=== PATIENT | female | born 2000 | race Two or more races ===

== ENCOUNTER 2025-01-17 18:33 | Emergency (ER) | payer OTHER ==
[~2025-01-17] VITALS: Ht 172.7 cm; Wt 71.8 kg
[2025-01-17] MEDS ORDERED: IBUP-1456 PO (20:20)
--- NOTE | 2025-01-17 20:20 | ED.PDOC ---
Musculoskeletal HPI Comments 24-year-old female presents to ER with complaints of left ankle pain x two days. Patient reports that she has been experiencing pain/swelling/bruising and numbness/tingling to left ankle and left foot x2 days s/p "rolling" her left ankle inwards while playing basketball two days ago. Denies head injury/LOC. States that she followed up with an urgent care provider yesterday with regards to her symptoms and was told that her left ankle "looked sprain" and was told to come back on Saturday for an x-ray of her left ankle. She rates her current pain a 8/10 to left ankle and left foot. Patient presents to ER with use of crutches and states she has not been able to bear weight on left leg due to left ankle and left foot pain. Denies any further symptoms/complaints Chief Complaint: Lower Extremity Time Seen by MD: 18:35 Primary Care Provider: UNKNOWN Reviewed Notes: Nurses Notes, Medications, Allergies Allergies: Coded Allergies: NO KNOWN ALLERGIES (Unverified , 01/17/25) Home Meds Active Scripts Ibuprofen (Ibuprofen) 800 Mg Tab, 1 TAB PO TID PRN, #30 TAB 0 Refills Prov:ENRIQUE SCHAEFER 01/17/25 Information Source: Patient Mode of Arrival: Wheelchair Past Medical History PAST MEDICAL HISTORY: Denies Surgical History: Denies all surgeries [facility] 01-14-25 Family History Family History: Unknown Social History Smoker: Non-Smoker Alcohol: Denies ETOH Use Drugs: Denies Drug Use Lives In: Home Constitutional: denies: chills, diaphoresis, fatigue, fever, malaise, sweats, weakness, others EENTM: denies: blurred vision, double vision, ear bleeding, ear discharge, ear drainage, ear pain, ear ringing, eye pain, eye redness, hearing loss, mouth pain, mouth swelling, nasal discharge, nose bleeding, nose congestion, nose pain, photophobia, tearing, throat pain, throat swelling, voice changes, others Respiratory: denies: cough, hemoptysis, orthopnea, SOB at rest, shortness of breath, SOB with excertion, stridor, wheezing, others Cardiovascular: denies: chest pain, dizzy spells, diaphoresis, Dyspnea on e xertion, edema, irregular heart beat, left arm pain, lightheadedness, palpitations, PND, syncope, others Gastrointestinal: denies: abdomen distended, abdominal pain, blood streaked bowels, constipated, diarrhea, dysphagia, difficulty swallowing, hematemesis, melena, nausea, poor appetite, poor fluid intake, rectal bleeding, rectal pain, vomiting, others Genitourinary: denies: abnormal vagina bleeding, burning, dyspareunia, dysuria, flank pain, frequency, hematuria, incontinence, pain, , vagina discharge, urgency, others Neurological: denies: dizziness, fainting, headache, left sided numbness, left sided weakness, numbness, paresthesia, pre-existing deficit, right sided numbness, right sided weakness, seizure, speech problems, tingling, tremors, weakness, others Musculoskeletal: reports: others ( STATED IN HPI) Integumetry: reports: others ( STATED IN HPI) Allergic/Immunocompromised: denies: Difficulty Healing, Frequent Infections, Hives, Itching, others Hematologic/Lymphatic: denies: anemia, blood clots, easy bleeding, easy bruising, swollen glands, others Endocrine: denies: excessive hunger, excessive sweating, excessive thirst, excessive urination, flushing, intolerance to cold, intolerance to heat, unexplained weight gain, unexplained weight loss, others Psychiatric: denies: anxiety, bipolar disorder, depression, hopeless, panic disorder, schizophrenia, sleepless, suicidal, others Physical Exam General Appearance: No Apparent Distress HEENT: PERRL/EOMI Neck: Full Range of Motion, Non-Tender, Normal Respiratory: Chest Non-Tender, Lungs Clear, No Accessory Muscle Use, No Respiratory Distress, Normal Breath Sounds Cardiovascular: No Murmur, No Gallop, Regular Rate/Rhythm Breast Exam: Deferred Gastrointestinal: NOT DONE Genitalia: Deferred Pelvic: Deferred Rectal: Deferred Extremities: No calf tenderness, Normal capillary refill, Normal range of motion Musculoskeletal : Extremity Location: Ankle (TTP/MILD SWELLING/ECCHYMOSIS NOTED TO LEFT LATERAL MEDIAL MALLEOLUS AND DIFFUSE TO DORSAL SURFACE OF LEFT FOOT. NO FURTHER SKIN CHANGES NOTED. PULSES INTACT. PATIENT UNABLE TO BEAR WEIGHT ON LEFT LEG DUE TO PAIN LOCALIZED TO LEFT MEDIAL/LEFT LATERAL MALLEOLUS AND TO DORSAL SURFACE OF LEFT FOOT) Neurologic: Alert, No Motor Deficits, Normal Affect, Normal Mood, No Sensory Deficits Cerebellar Function: Normal Reflexes: Normal Skin: Dry, Warm Peripheral Pulses: 2+ dorsalis pedis (R), 2+ dorsalis pedis (L) Lymphatic: No Adenopathy Was a procedure done? Was a procedure done?: No Sedation Sedation?: No Differential Diagnosis EXT Differential Diagnosis: Fracture, Dislocation, Neurovascular injury X-Ray, Labs, Meds, VS Vital Signs Date Time Temp Pulse Resp B/P (MAP) Pulse Ox O2 Delivery O2 Flow Rate FiO2 01/17/25 20:48 98.3 90 16 119/80 (93) 99 98.3 01/17/25 19:33 98.2 91 16 114/77 (89) 100 98.2 01/17/25 19:33 91 16 100 Room Air 01/17/25 18:58 98.2 91 16 114/77 (89) 100 98.2 PATIENT: MARGARETTE PUENTE: [id number] UNIT: [id number] : 2000 LOC: ER ROOM / BED: / AGE / SEX: 24 / F ADM STATUS: REG ER SERVICE 09 ORDERING PHYSICIAN: ENRIQUE SCHAEFER PROCEDURE(s): LANKL - L ANKLE 3 VIEW REASON: left ankle pain/swelling ORDER NUMBER(s): [id number], ACCESSION NUMBER(s): [id number] CLINICAL INDICATION: left ankle pain/swelling TECHNIQUE: 3 radiographic views of the left ankle were obtained. Comparison: None FINDINGS/IMPRESSION: There is no evidence of acute fracture or dislocation. Soft tissue swelling over the lateral malleolus. The visualized joint space is well maintained. The alignment is anatomical. There is no radiopaque foreign body. ATED BY: JEVON SALAZAR Jr., DO DICTATED DATE/TIME: 01/17/252036 SIGNED BY: JEVON SALAZAR Jr., SIGNED DATE/TIME: 01/17/252036 CC: PATIENT: MARGARETTE PUENTE: [id number] UNIT: [id number] : 2000 LOC: ER ROOM / BED: / AGE / SEX: 24 / F ADM STATUS: REG ER SERVICE 09 ORDERING PHYSICIAN: ENRIQUE SCHAEFER PROCEDURE(s): LFOOT - L FOOT 3 VIEW XRAY REASON: left foot pain/swelling ORDER NUMBER(s): [id number], ACCESSION NUMBER(s): [id number] CLINICAL INDICATION: left foot pain/swelling TECHNIQUE: XY L FOOT 3 VIEW XRAY Comparison: None FINDINGS / IMPRESSION: No osseous or joint abnormality identified in the left foot with no fracture or dislocation. Joint spaces are normal. Probable ankle joint effusion noted. ATED BY: GAEL MELTON MD DICTATED DATE/TIME: 01/17/252041 SIGNED BY: GAEL MELTON MD SIGNED DATE/TIME: 01/17/252041 CC: LEFT FOOT X-RAY REVIEWED LEFT ANKLE X-RAY REVIEWED SAMIR WRAP APPLIED PATIENT NEUROVASCULARLY INTACT PATIENT BROUGHT CRUTCHES WITH HER TO ER. WAS ADVISED ON USE AT ALL TIMES ADVISED ON REST/NO STRENUOUS ACTIVITY, ELEVATION AND ALTERNATE ICE ON/OFF NEEDED FOR PAIN/SWELLING ADVISED TO FOLLOW UP WITH PCP AND ORTHOPEDICS IN 1-2 DAYS PATIENT VERBALIZED UNDERSTANDING AND AGREEABLE WITH CURRENT PLAN OF CARE ADVISED TO RETURN TO ER IMMEDIATELY IF SYMPTOMS WORSEN Images Reviewed?: Images reviewed and evaluated by me Time of 1ST Reevaluation: 19:54 Reevaluation 1ST: N/A Patient Education/Counseling: Diagnosis, Treatment, Prognosis, Need For Follow Up Family Education/Counseling: Diagnosis, Treatment, Prognosis, Need For Follow Up Departure 1 Departure Time of Disposition: 20:12 Impression: Primary Impression: Left ankle sprain Qualified Codes: S93.402A - Sprain of unspecified ligament of left ankle, initial encounter Additional Impression: Contusion of left foot Qualified Codes: S90.32XA - Contusion of left foot, initial encounter Disposition: HOME / SELF CARE / HOMELESS Condition: Stable e-Prescriptions Ibuprofen (Ibuprofen) 800 Mg Tab 1 TAB PO TID PRN, #30 TAB 0 Refills Prov: ENRIQUE SCHAEFER 01/17/25 Discharged With: Friend Critical Care Note Critical Care Time?: No Stability Stability form required: No Heart Score Heart Score: Heart Score Response (Comments) Value History N/A 0 EKG N/A 0 Age N/A 0 Risk Factors N/A 0 Troponin N/A 0 Total 0 ENRIQUE SCHAEFER Jan 17, 2025 20:20
--- NOTE | 2025-01-17 20:39 | DVH ---
CLINICAL INDICATION: left ankle pain/swelling TECHNIQUE: 3 radiographic views of the left ankle were obtained. Comparison: None FINDINGS/IMPRESSION: There is no evidence of acute fracture or dislocation. Soft tissue swelling over the lateral malleolus. The visualized joint space is well maintained. The alignment is anatomical. There is no radiopaque foreign body.
--- NOTE | 2025-01-17 20:45 | DVH ---
CLINICAL INDICATION: left foot pain/swelling TECHNIQUE: XY L FOOT 3 VIEW XRAY Comparison: None FINDINGS / IMPRESSION: No osseous or joint abnormality identified in the left foot with no fracture or dislocation. Joint sp aces are normal. Probable ankle joint effusion noted.
[2025-01-17 20:48] VITALS: BP 119/80; PULSE 90; RESP 16; TEMP 98.3; O2SAT 99
== END 2025-01-17 21:18 | disposition home or self-care (01) ==
LOC: ER 18:33
DX: S93.492A Sprain of other ligament of left ankle, initial encounter (principal); S90.32XA Contusion of left foot, initial encounter; X58.XXXA Exposure to other specified factors, initial encounter; Y93.67 Activity, basketball; Y92.89 Other specified places as the place of occurrence of the external cause; Y99.8 Other external cause status
CPT/HCPCS: 73610; 73630